=== PATIENT | female | born 1965 | race African-American/Black ===

== ENCOUNTER 2024-06-04 06:51 | Emergency (ER) | payer MEDICAID, OTHER ==
[~2024-06-04] VITALS: Ht 162.6 cm; Wt 65.3 kg
[2024-06-04 06:58] VITALS: O2SAT 100
[2024-06-04 07:01] VITALS: TEMP 36.9; O2SAT 99
[2024-06-04] MEDS ORDERED: METH-653 MT (07:34)
[2024-06-04 07:40] VITALS: BP 122/79; PULSE 71; RESP 18
[2024-06-04] MEDS: IBUPROFEN 600MG TABLET PO ONE (07:40)
== END 2024-06-04 08:45 | disposition home or self-care (01) ==
LOC: ER 06:51
DX: M25.511 Pain in right shoulder (principal); M54.50 Low back pain, unspecified; Z79.899 Other long term (current) drug therapy; Z98.890 Other specified postprocedural states; V43.52XA Car driver injured in collision with other type car in traffic accident, initial encounter; Y93.89 Activity, other specified; Y92.89 Other specified places as the place of occurrence of the external cause; Y99.8 Other external cause status
CPT/HCPCS: 73030; 99283